=== PATIENT | male | born 1965 | race Caucasian/White ===

== ENCOUNTER 2018-04-03 08:23 | Inpatient (IN) | payer OTHER ==
[2018-04-03] VITALS (16 sets, daily range): BP systolic 105–142; BP diastolic 74–102
[~2018-04-03] VITALS: Ht 190.5 cm; Wt 100.2 kg
[~2018-04-03 08:23] MED LIST: NAPR-56 PO; NORCO10T PO
[2018-04-03] MEDS ORDERED: NO HOME MEDS (09:25)
[2018-04-03 09:27] LABS: BASOPHILS % (AUTO) 0.8 % (0-1); EOSINOPHILS # (AUTO) 0.3 X10'3 (0-0.9); EOSINOPHILS % (AUTO) 4.4 % (0-6); LYMPHOCYTES # (AUTO) 1.9 X10'3 (1.1-4.8); LYMPHOCYTES % (AUTO) 32.5 % (21-51); MEAN CORPUSCULAR HEMOGLOBIN 29.2 PG (27.0-31.0); MEAN CORPUSCULAR HGB CONC 34.5 % (33.0-36.5); MEAN CORPUSCULAR VOLUME 84.7 FL (78-98); MEAN PLATELET VOLUME 7.3 FL (7.4-10.4); MONOCYTES # (AUTO) 0.5 X10'3 (0-0.9); MONOCYTES % (AUTO) 7.9 % (2-12); NEUTROPHILS # (AUTO) 3.1 X10'3 (1.8-7.7); NEUTROPHILS % (AUTO) 54.4 % (42-75); PRE OP HEMATOCRIT 41.8 % (42.0-52.0); PRE OP HEMOGLOBIN 14.4 g/dL (14.0-17.9); PRE OP PLATELET COUNT 209 X10'3 (140-440); RED BLOOD COUNT 4.93 X10'6 (4.70-6.10); RED CELL DISTRIBUTION WIDTH 14.5 % (11.5-14.5)
[2018-04-03 09:57] LABS: ALBUMIN 3.7 G/DL (3.4-5.0); ALBUMIN/GLOBULIN RATIO 0.9 (1.1-1.5); ALKALINE PHOSPHATASE 71 IU/L (46-116); BLOOD UREA NITROGEN 17 MG/DL (7-18); BUN/CREATININE RATIO 11.7 (5.4-32.0); CALCIUM 9.2 MG/DL (8.5-10.1); CHLORIDE 105 MMOL/L (99-107); CREATININE 1.45 MG/DL (0.60-1.10); PRE OP ALT 36 U/L (30-65); PRE OP ANION GAP 8 (8-16); PRE OP AST 26 U/L (10-37); PRE OP BILIRUB, TOTAL 0.6 MG/DL (0.0-1.0); PRE OP GLUCOSE 94 MG/DL (70-104); PRE OP POTASSIUM 3.7 MMOL/L (3.4-5.1); PRE OP SODIUM 140 MMOL/L (135-145); TOTAL CARBON DIOXIDE 27.3 MMOL/L (24-32); TOTAL PROTEIN 7.7 G/DL (6.4-8.2); eGFR 51 ML/MIN
[2018-04-03] MEDS ORDERED: LIDOcaine 1% (10mg/ml) 2ml vial ONE (10:08)
[2018-04-03] MEDS ORDERED: ketorolac trometh. 30mg/ml inj. ONE (12:25)
[2018-04-03] MEDS ORDERED: ROPIVAcaine 0.5% (5mg/ml) 30ml vial ONE ×2 (12:26→18:26)
[2018-04-03] MEDS ORDERED: vancomycin 1,000mg inj ONE (12:49)
[2018-04-03] MEDS ORDERED: vancomycin inj 1,500 MG in normal saline 300ml IV soln IV ONE (13:30)
[2018-04-03] MEDS ORDERED: Cefazolin 2GM/100ML NS IVPB IV ONE (13:30)
[2018-04-03] MEDS ORDERED: ringers solution, lacted 1,000 ML IV SCH (13:30)
[2018-04-03] MEDS ORDERED: BUPIVAcaine/PF 7.5mg/ml (0.75%) 10ml vial ONE (15:36)
[2018-04-03] MEDS ORDERED: MIDAZolam 1mg/ml 10ml vial ONE (15:40)
[2018-04-03] MEDS ORDERED: morphine /PF 1mg/ml 10ml inj. ONE (15:40)
[2018-04-03] MEDS ORDERED: fentaNYL/PF 50MCG/1 ML 2ML syringe ONE (15:41)
[2018-04-03] MEDS ORDERED: tranexamic acid inj. 1,000 MG in normal saline 100ml IV soln 90 ML IV ONE ×4 (15:50)
[2018-04-03] MEDS ORDERED: naloxone 2mg/2ml inj 2 MG in normal saline 500ml IV soln 500 ML IV PRN (17:14)
[2018-04-03] MEDS ORDERED: diphenhydrAMINE 50 mg/ml inj IV PRN (17:15)
[2018-04-03] MEDS ORDERED: ondansetron/PF 4mg/2ml inj IV PRN ×2 (17:15→18:35)
[2018-04-03 18:05] LABS: APPEARANCE,SYNOVIAL FLUID CLOUDY; COLOR,SYNOVIAL FLUID YELLOW; SYN RBC 630 /CU MM (0); SYN WBC 110 /CU MM (0-200)
[2018-04-03] MEDS ORDERED: HYDROmorphone inj. 0.5 MG/0.5 ML DISP.SYRIN IV PRN ×2 (18:35)
[2018-04-03] MEDS ORDERED: diphenhydrAMINE 25mg capsule PO PRN ×2 (18:35)
[2018-04-03] MEDS ORDERED: magnesium hydroxide 30ml (MOM) UD suspension PO PRN (18:35)
[2018-04-03] MEDS ORDERED: bisacodyl 10mg suppository rectal RC PRN (18:35)
[2018-04-03] MEDS ORDERED: acetaminophen 325mg tablet PO PRN (18:35)
[2018-04-03] MEDS ORDERED: tranexamic acid inj. 1,000 MG in normal saline 100ml IV soln 100 ML IV ONE (21:00)
[2018-04-03] MEDS: ketorolac tromethamine 15mg/ml inj. IV SCH (21:05)
[2018-04-03] MEDS: gabapentin 300mg capsule PO SCH (21:06)
[2018-04-03] MEDS: acetaminophen 325mg tablet PO SCH (21:06)
[2018-04-03] MEDS: sennosides 8.6mg tablet PO SCH (21:06)
[2018-04-03] MEDS: potassium cl 20mEq in 1/2 NS 1,000 ML IV SCH (21:07)
[2018-04-03] MEDS: ceFAZolin 1GM/D5W- ADD-VANTAGE 50 ML IV SCH (23:58)
[2018-04-04] MEDS ORDERED: vancomycin/NS 1 GM ADD-VANTAGE 250 ML IV SCH
[2018-04-04] MEDS: acetaminophen 325mg tablet PO SCH ×4 (02:07→20:32)
[2018-04-04] MEDS: ketorolac tromethamine 15mg/ml inj. IV SCH ×3 (02:08→13:03)
[2018-04-04] MEDS: potassium cl 20mEq in 1/2 NS 1,000 ML IV SCH ×3 (02:34→19:10)
[2018-04-04 02:57] VITALS: BP 93/65
[2018-04-04] MEDS: oxyCODONE IR 5mg (immed. release) tablet PO PRN (05:05)
[2018-04-04] MEDS ORDERED: famotidine 20mg tablet PO ONE (05:30)
[2018-04-04 06:00] VITALS: BP 90/62
[2018-04-04 06:04] LABS: BASOPHILS % (AUTO) 0.2 % (0-1); EOSINOPHILS # (AUTO) 0.1 X10'3 (0-0.9); EOSINOPHILS % (AUTO) 1.5 % (0-6); HEMATOCRIT 33.6 % (42.0-52.0); HEMOGLOBIN 11.6 g/dl (14.0-17.9); LYMPHOCYTES # (AUTO) 0.9 X10'3 (1.1-4.8); LYMPHOCYTES % (AUTO) 11.8 % (21-51); MEAN CORPUSCULAR HEMOGLOBIN 29.2 PG (27.0-31.0); MEAN CORPUSCULAR HGB CONC 34.5 % (33.0-36.5); MEAN CORPUSCULAR VOLUME 84.7 FL (78-98); MEAN PLATELET VOLUME 7.3 FL (7.4-10.4); MONOCYTES # (AUTO) 0.4 X10'3 (0-0.9); MONOCYTES % (AUTO) 4.6 % (2-12); NEUTROPHILS # (AUTO) 6.4 X10'3 (1.8-7.7); NEUTROPHILS % (AUTO) 81.9 % (42-75); PLATELET COUNT 172 X10'3 (140-440); RED BLOOD COUNT 3.97 X10'6 (4.70-6.10); RED CELL DISTRIBUTION WIDTH 14.4 % (11.5-14.5); WHITE BLOOD COUNT 7.8 X10'3 (4.5-11.0)
[2018-04-04 06:24] LABS: ANION GAP 8 (8-16); CHLORIDE 105 MMOL/L (99-107); POTASSIUM 4.5 MMOL/L (3.5-5.1); SODIUM 138 MMOL/L (135-145); TOTAL CARBON DIOXIDE 25.4 MMOL/L (24-32)
[2018-04-04] MEDS: gabapentin 300mg capsule PO SCH ×3 (07:31→20:32)
[2018-04-04] MEDS: ceFAZolin 1GM/D5W- ADD-VANTAGE 50 ML IV SCH (07:31)
[2018-04-04] MEDS: aspirin 325mg tablet PO SCH (08:07)
[2018-04-04 10:00] VITALS: BP 115/81
[2018-04-04 14:00] VITALS: BP 133/85
[2018-04-04 18:00] VITALS: BP 126/81
[2018-04-04] MEDS: celeCOXIB 100mg capsule PO SCH (20:31)
[2018-04-04] MEDS: sennosides 8.6mg tablet PO SCH (20:32)
[2018-04-04 22:00] VITALS: BP 109/74
[2018-04-05] MEDS: acetaminophen 325mg tablet PO SCH ×3 (02:00→13:03)
[2018-04-05] MEDS: potassium cl 20mEq in 1/2 NS 1,000 ML IV SCH (02:34)
[2018-04-05] MEDS: oxyCODONE IR 5mg (immed. release) tablet PO PRN ×3 (05:01→14:00)
[2018-04-05 05:29] LABS: BASOPHILS % (AUTO) 0.5 % (0-1); EOSINOPHILS # (AUTO) 0.2 X10'3 (0-0.9); EOSINOPHILS % (AUTO) 3.6 % (0-6); HEMATOCRIT 31.9 % (42.0-52.0); HEMOGLOBIN 10.9 g/dl (14.0-17.9); LYMPHOCYTES # (AUTO) 1.7 X10'3 (1.1-4.8); LYMPHOCYTES % (AUTO) 27.2 % (21-51); MEAN CORPUSCULAR HEMOGLOBIN 29.2 PG (27.0-31.0); MEAN CORPUSCULAR HGB CONC 34.3 % (33.0-36.5); MEAN CORPUSCULAR VOLUME 85.1 FL (78-98); MEAN PLATELET VOLUME 7.7 FL (7.4-10.4); MONOCYTES # (AUTO) 0.6 X10'3 (0-0.9); MONOCYTES % (AUTO) 9.7 % (2-12); NEUTROPHILS # (AUTO) 3.6 X10'3 (1.8-7.7); PLATELET COUNT 151 X10'3 (140-440); RED BLOOD COUNT 3.75 X10'6 (4.70-6.10); RED CELL DISTRIBUTION WIDTH 14.7 % (11.5-14.5); WHITE BLOOD COUNT 6.1 X10'3 (4.5-11.0)
[2018-04-05 06:00] VITALS: BP 122/82
[2018-04-05] MEDS: gabapentin 300mg capsule PO SCH ×2 (07:28→13:02)
[2018-04-05] MEDS: aspirin 325mg tablet PO SCH (07:28)
[2018-04-05] MEDS: celeCOXIB 100mg capsule PO SCH (07:28)
[2018-04-05 10:00] VITALS: BP 158/101
[2018-04-05] MEDS ORDERED: ASPI-1 PO (12:08)
[2018-04-05] MEDS ORDERED: acetaminophen 325mg tablet PO PRN (18:35)
== END 2018-04-05 15:18 | disposition home or self-care (01) | DRG 467 ==
LOC: PAS IN 08:51 → EDSTATUS 14:00 → ORTHO 4S 19:56
PROVIDERS: ADMIT Orthopaedic Surgery; ATTEND Orthopaedic Surgery
PROC: 0SRD0J9 Replacement of Left Knee Joint with Synthetic Substitute, Cemented, Open Approach (ICD-10-PCS; 2018-04-03)
PROC: 3E0T3BZ Introduction of Anesthetic Agent into Peripheral Nerves and Plexi, Percutaneous Approach (ICD-10-PCS; 2018-04-03)
PROC: 0SPD0JZ Removal of Synthetic Substitute from Left Knee Joint, Open Approach (ICD-10-PCS; principal; 2018-04-03 15:40)
DX: T84.093A Other mechanical complication of internal left knee prosthesis, initial encounter (principal); D62 Acute posthemorrhagic anemia; Y83.1 Surgical operation with implant of artificial internal device as the cause of abnormal reaction of the patient, or of later complication, without mention of misadventure at the time of the procedure; Z79.82 Long term (current) use of aspirin; Z79.899 Other long term (current) drug therapy; Z79.01 Long term (current) use of anticoagulants; Z88.0 Allergy status to penicillin; Z82.49 Family history of ischemic heart disease and other diseases of the circulatory system; Z80.9 Family history of malignant neoplasm, unspecified; Y92.89 Other specified places as the place of occurrence of the external cause
CPT/HCPCS: 36415; 80051; 80053; 85025; 87070; 87075; 89051; 97110; 97116; 97162; 97530; A4315; A4344; A6455; A7000; A9272; C1713; C1758; C1776; J0690; J1885; J2250; J2274; J2795; J3010; J3370; J3490; J7030; J7120